=== PATIENT | female | born 1950 | race Caucasian/White ===

== ENCOUNTER 2017-07-29 19:23 | Inpatient (IN) | payer OTHER, MEDICARE ==
[~2017-07-29] VITALS: Ht 165.1 cm; Wt 99.3 kg
[2017-07-29] MEDS ORDERED: SODIUM CHLORIDE 0.9% 1,000 ML IV ONE (20:15)
[2017-07-29] MEDS ORDERED: ACETAMINOPHEN 500 MG TABLET ONE (20:20)
[2017-07-29] MEDS ORDERED: ONDANSETRON 2MG/ML, 2ML ONE (20:20)
[2017-07-29] MEDS ORDERED: SODIUM CHLORIDE FLUSH 10ML SYR IVF ONE (20:30)
[2017-07-29] MEDS ORDERED: SODIUM CHLORIDE 0.9% 1,000ML IVBOLUS ONE (20:30)
[2017-07-29] MEDS ORDERED: ONDANSETRON 2MG/ML, 2ML IVPush ONE (20:30)
[2017-07-29] MEDS ORDERED: ACETAMINOPHEN 500 MG TABLET PO ONE (20:30)
[2017-07-29 20:50] LABS: HEMATOCRIT 29.2 % (34.6-47.8); HEMOGLOBIN 9.6 g/dL (11.7-16.4); WHITE BLOOD COUNT 10.3 x10^3/uL (3.4-10)
[2017-07-29 20:52] LABS: PATH.CAST-FLAG NOT PRESENT; SPERM-FLAG NOT PRESENT; SRC-FLAG NOT PRESENT; XTAL-FLAG NOT PRESENT; YLC-FLAG NOT PRESENT
[2017-07-29] MEDS ORDERED: CEFTRIAXONE PMX 1GM/50ML 50 ML ONE (20:59)
[2017-07-29 21:00] LABS: ASPARTATE AMINO TRANSFERASE 15 U/L (15-37); BLOOD UREA NITROGEN 21 mg/dL (7-18)
[2017-07-29] MEDS ORDERED: CEFTRIAXONE PMX 1GM/50ML 50 ML IV ONE (21:00)
[2017-07-29] MEDS ORDERED: GLIP10TA13 PO (21:24)
[2017-07-29] MEDS ORDERED: MULT-658 PO (21:24)
[2017-07-29] MEDS ORDERED: LISI5TAB7 PO (21:24)
[2017-07-29] MEDS ORDERED: METF850T2 PO (21:24)
[2017-07-29] MEDS ORDERED: SIMV20TA3 PO (21:24)
[2017-07-29] MEDS ORDERED: ASPI-496 PO (21:24)
[2017-07-29] MEDS ORDERED: metFORMIN 850 MG TABLET PO SCH (22:00)
[2017-07-29] MEDS ORDERED: ACETAMINOPHEN 325 MG TABLET PO PRN (22:00)
[2017-07-29] MEDS ORDERED: POLYETHYLENE GLYCOL 17 GM PACKET PO PRN (22:00)
[2017-07-29] MEDS ORDERED: VANCOMYCIN PER PHARMACY MC PRN (22:00)
[2017-07-29] MEDS ORDERED: BISACODYL 10 MG SUPP PR PRN (22:00)
[2017-07-29] MEDS ORDERED: ONDANSETRON 2MG/ML, 2ML IVPush PRN (22:00)
[2017-07-29] MEDS: SODIUM CHLORIDE 0.9% 1,000 ML IV SCH (22:31)
[2017-07-29] MEDS ORDERED: PIPERACILLIN/TAZO/PMX 3.375GM 50 ML ONE (22:51)
[2017-07-29] MEDS: PIPERACILLIN/TAZO/PMX 3.375GM 50 ML IV SCH (22:58)
[2017-07-29] MEDS ORDERED: PHARMACOKINETIC MONITORING MC PRN (23:30)
[2017-07-30] MEDS ORDERED: VANCOMYCIN 1,800 MG in SODIUM CHLORIDE 0.9% 250 ML IV ONE
[2017-07-30] MEDS: SIMVASTATIN 20 MG TABLET PO SCH ×2 (00:12→21:29)
[2017-07-30] MEDS: HEPARIN 5,000 UNITS/ML, 1ML SQ SCH ×4 (00:12→21:30)
[2017-07-30] MEDS: INSULIN ASPART 100 UNITS/ML, PEN SQ-INSULIN SCH ×5 (00:27→21:30)
[2017-07-30 00:32] VITALS: BP 103/64
[2017-07-30] MEDS: PIPERACILLIN/TAZO/PMX 3.375GM 50 ML IV SCH ×3 (04:03→17:55)
[2017-07-30 05:31] LABS: HEMATOCRIT 26.8 % (34.6-47.8); HEMOGLOBIN 8.9 g/dL (11.7-16.4); WHITE BLOOD COUNT 9.8 x10^3/uL (3.4-10)
[2017-07-30 05:50] LABS: ASPARTATE AMINO TRANSFERASE 10 U/L (15-37); BLOOD UREA NITROGEN 19 mg/dL (7-18)
[2017-07-30 07:58] VITALS: BP 100/61
[2017-07-30] MEDS: LISINOPRIL 5 MG TABLET PO SCH (08:22)
[2017-07-30] MEDS: ASPIRIN 81 MG TABLET EC PO SCH (08:22)
[2017-07-30] MEDS: SODIUM CHLORIDE 0.9% 1,000 ML IV SCH ×2 (08:23→17:55)
[2017-07-30] MEDS: MULTIVITAMIN 1 TABLET PO SCH (08:23)
[2017-07-30] MEDS: SENNA/DOCUSATE TABLET PO SCH (08:23)
[2017-07-30 12:39] VITALS: BP 97/58
[2017-07-30 19:57] VITALS: BP 110/68
[2017-07-31] MEDS: PIPERACILLIN/TAZO/PMX 3.375GM 50 ML IV SCH ×4 (00:10→18:13)
[2017-07-31] MEDS: VANCOMYCIN 1,800 MG in SODIUM CHLORIDE 0.9% 250 ML IV SCH (00:52)
[2017-07-31 01:56] VITALS: BP 107/69
[2017-07-31] MEDS: SODIUM CHLORIDE 0.9% 1,000 ML IV SCH (05:52)
[2017-07-31] MEDS: HEPARIN 5,000 UNITS/ML, 1ML SQ SCH ×3 (05:53→21:29)
[2017-07-31] MEDS: INSULIN ASPART 100 UNITS/ML, PEN SQ-INSULIN SCH ×4 (07:00→21:38)
[2017-07-31 07:36] VITALS: BP 112/72
[2017-07-31] MEDS: MULTIVITAMIN 1 TABLET PO SCH (08:00)
[2017-07-31] MEDS: ASPIRIN 81 MG TABLET EC PO SCH (08:00)
[2017-07-31] MEDS: LISINOPRIL 5 MG TABLET PO SCH (08:00)
[2017-07-31] MEDS: SENNA/DOCUSATE TABLET PO SCH (08:01)
[2017-07-31 10:03] LABS: BLOOD UREA NITROGEN 15 mg/dL (7-18); HEMOGLOBIN 7.6 g/dL (11.7-16.4); WHITE BLOOD COUNT 6.6 x10^3/uL (3.4-10)
[2017-07-31 10:14] LABS: DIFF TOTAL CELLS COUNTED 100 CELL DIFF
[2017-07-31 10:17] LABS: ANISOCYTOSIS 1+; OVALOCYTES 1+; POIKILOCYTOSIS 1+; VERIFY COUNTS? YES
[2017-07-31 12:20] LABS: FERRITIN 482.1 ng/mL (8-252)
[2017-07-31 13:16] LABS: OCCBLD OBC PASS
[2017-07-31 13:57] VITALS: BP 151/74
[2017-07-31 21:22] VITALS: BP 111/72
[2017-07-31] MEDS: SIMVASTATIN 20 MG TABLET PO SCH (21:29)
[2017-08-01] MEDS: PIPERACILLIN/TAZO/PMX 3.375GM 50 ML IV SCH ×3 (00:18→11:42)
[2017-08-01] MEDS: VANCOMYCIN 1,800 MG in SODIUM CHLORIDE 0.9% 250 ML IV SCH (01:00)
[2017-08-01 02:15] VITALS: BP 124/84
[2017-08-01 05:00] LABS: HEMOGLOBIN 7.3 g/dL (11.7-16.4); WHITE BLOOD COUNT 4.9 x10^3/uL (3.4-10)
[2017-08-01 05:21] LABS: BLOOD UREA NITROGEN 12 mg/dL (7-18)
[2017-08-01 05:26] LABS: HEMATOCRIT 22.1 % (34.6-47.8)
[2017-08-01] MEDS: HEPARIN 5,000 UNITS/ML, 1ML SQ SCH ×2 (05:36→14:00)
[2017-08-01 07:22] VITALS: BP 128/80
[2017-08-01] MEDS: ASPIRIN 81 MG TABLET EC PO SCH (07:47)
[2017-08-01] MEDS: LISINOPRIL 5 MG TABLET PO SCH (07:47)
[2017-08-01] MEDS: MULTIVITAMIN 1 TABLET PO SCH (07:47)
[2017-08-01] MEDS: INSULIN ASPART 100 UNITS/ML, PEN SQ-INSULIN SCH ×2 (07:48→11:40)
[2017-08-01] MEDS: SENNA/DOCUSATE TABLET PO SCH (07:48)
[2017-08-01] MEDS ORDERED: AMOX1TAB64 PO (09:32)
[2017-08-01] MEDS ORDERED: LACT1CAP32 PO (09:32)
[2017-08-01] MEDS ORDERED: FERR325T18 PO (09:33)
[2017-08-02] MEDS ORDERED: VANCOMYCIN 1,800 MG in SODIUM CHLORIDE 0.9% 250 ML IV SCH (01:00)
== END 2017-08-01 14:50 | disposition home or self-care (01) | DRG 871 ==
LOC: ED 21:50 → EDIP 22:00 → 4WST 23:18 → DCLOUNGE 08-01 14:37
PROVIDERS: ADMIT Internal Medicine; ATTEND Internal Medicine
DX: A41.9 Sepsis, unspecified organism (principal); J18.9 Pneumonia, unspecified organism; N17.9 Acute kidney failure, unspecified; E44.0 Moderate protein-calorie malnutrition; E86.0 Dehydration; E87.1 Hypo-osmolality and hyponatremia; E11.65 Type 2 diabetes mellitus with hyperglycemia; D64.9 Anemia, unspecified; E66.9 Obesity, unspecified; Z68.36 Body mass index [BMI] 36.0-36.9, adult; E78.5 Hyperlipidemia, unspecified; I10 Essential (primary) hypertension; J20.9 Acute bronchitis, unspecified; Z66 Do not resuscitate; Z79.82 Long term (current) use of aspirin; Z79.84 Long term (current) use of oral hypoglycemic drugs; Z79.899 Other long term (current) drug therapy; Z85.72 Personal history of non-Hodgkin lymphomas; Z92.21 Personal history of antineoplastic chemotherapy; Z92.3 Personal history of irradiation
CPT/HCPCS: 36415; 71010; 71250; 80048; 80053; 81001; 82272; 82607; 82728; 82962; 83036; 83540; 83550; 83605; 85025; 85045; 87040; 87070; 87147; 87205; 93005; 96361; 96365; 96375; J0696; J1644; J1815; J2405; J2543; J3370; J7030; J7050

== ENCOUNTER → 2017-08-04 | Outpatient (CLI) | payer OTHER, MEDICARE ==
[~2017-08-04] MED LIST: AMOX1TAB64 PO; ASPI-496 PO; FERR325T18 PO; GLIP10TA13 PO; LACT1CAP32 PO; LISI5TAB7 PO; METF850T2 PO; MULT-658 PO; SIMV20TA3 PO
== END | disposition home or self-care (01) ==
LOC: WOUND 09:22
PROVIDERS: ATTEND Internal Medicine
DX: E11.622 Type 2 diabetes mellitus with other skin ulcer (principal); L97.821 Non-pressure chronic ulcer of other part of left lower leg limited to breakdown of skin; I10 Essential (primary) hypertension; E78.5 Hyperlipidemia, unspecified; E66.9 Obesity, unspecified; Z87.01 Personal history of pneumonia (recurrent); Z68.36 Body mass index [BMI] 36.0-36.9, adult
CPT/HCPCS: 97597; G0463; WOU0463

== ENCOUNTER → 2017-08-04 | Outpatient (CLI) | payer MEDICARE, OTHER | END | disposition home or self-care (01) | LOC: CFH 07:39 | PROVIDERS: ATTEND Internal Medicine | DX: L03.116 Cellulitis of left lower limb (principal) ==

== ENCOUNTER → 2017-08-18 | Outpatient (CLI) | payer MEDICARE, OTHER | END | disposition home or self-care (01) | LOC: WOUND 09:05 | PROVIDERS: ATTEND Physician Assistant | DX: E11.622 Type 2 diabetes mellitus with other skin ulcer (principal); L97.222 Non-pressure chronic ulcer of left calf with fat layer exposed; I87.332 Chronic venous hypertension (idiopathic) with ulcer and inflammation of left lower extremity; Z68.36 Body mass index [BMI] 36.0-36.9, adult; I10 Essential (primary) hypertension; E78.5 Hyperlipidemia, unspecified; E66.9 Obesity, unspecified; Z87.01 Personal history of pneumonia (recurrent) | CPT/HCPCS: 97597; 97598 ==

== ENCOUNTER → 2017-08-22 | Outpatient (CLI) | payer OTHER | END | disposition home or self-care (01) | LOC: WOUND 10:22 | PROVIDERS: ATTEND Specialist | DX: E11.622 Type 2 diabetes mellitus with other skin ulcer (principal); L97.222 Non-pressure chronic ulcer of left calf with fat layer exposed; I87.332 Chronic venous hypertension (idiopathic) with ulcer and inflammation of left lower extremity; E78.5 Hyperlipidemia, unspecified; E66.9 Obesity, unspecified; Z87.01 Personal history of pneumonia (recurrent); Z68.36 Body mass index [BMI] 36.0-36.9, adult | CPT/HCPCS: G0463; WOU0463 ==

== ENCOUNTER → 2017-09-01 | Outpatient (CLI) | payer OTHER | END | disposition home or self-care (01) | LOC: WOUND 10:16 | PROVIDERS: ATTEND Physician Assistant | DX: E11.622 Type 2 diabetes mellitus with other skin ulcer (principal); L97.222 Non-pressure chronic ulcer of left calf with fat layer exposed; I87.332 Chronic venous hypertension (idiopathic) with ulcer and inflammation of left lower extremity; Z68.36 Body mass index [BMI] 36.0-36.9, adult; E78.5 Hyperlipidemia, unspecified; E66.9 Obesity, unspecified; Z87.01 Personal history of pneumonia (recurrent) | CPT/HCPCS: 97597 ==

== ENCOUNTER → 2017-09-05 | Outpatient (CLI) | payer OTHER, MEDICARE | END | disposition home or self-care (01) | LOC: CFH 11:01 | PROVIDERS: ATTEND Nurse Practitioner | DX: Z12.31 Encounter for screening mammogram for malignant neoplasm of breast (principal) | CPT/HCPCS: 77063; G0202 ==

== ENCOUNTER → 2017-09-08 | Outpatient (CLI) | payer OTHER | END | disposition home or self-care (01) | LOC: WOUND 09:56 | PROVIDERS: ATTEND Physician Assistant | DX: E11.622 Type 2 diabetes mellitus with other skin ulcer (principal); L97.222 Non-pressure chronic ulcer of left calf with fat layer exposed; I87.332 Chronic venous hypertension (idiopathic) with ulcer and inflammation of left lower extremity; E78.5 Hyperlipidemia, unspecified; E66.9 Obesity, unspecified; Z87.01 Personal history of pneumonia (recurrent) | CPT/HCPCS: G0463; WOU0463 ==

== ENCOUNTER → 2020-06-12 | Outpatient (CLI) | payer MEDICARE ==
[~2020-06-12] MED LIST changes: +METF850T10 PO; -METF850T2 PO; +SIMV20TA19 PO; -SIMV20TA3 PO
== END | disposition home or self-care (01) ==
LOC: CFH 08:13
PROVIDERS: ATTEND Nurse Practitioner
DX: M62.89 Other specified disorders of muscle (principal)

== ENCOUNTER → 2020-07-29 | Outpatient (CLI) | payer MEDICARE | END | disposition home or self-care (01) | LOC: PETCFH 09:52 | PROVIDERS: ATTEND Internal Medicine | DX: C83.39 Diffuse large B-cell lymphoma, extranodal and solid organ sites (principal); R91.8 Other nonspecific abnormal finding of lung field | CPT/HCPCS: 78815; A9552 ==

== ENCOUNTER → 2020-10-01 | Outpatient (CLI) | payer MEDICARE ==
[~2020-10-01] MED LIST changes: +ACID1TAB7 PO; +ALLO100T30 PO; +HYDR-3341 PO; +INSU100I11 SQ-INSULIN; +INSU100I13 SQ-INSULIN; +LEVO750T6 PO; +PRED10TA PO; +PRED20TA PO; +SODI650T PO
== END | disposition home or self-care (01) ==
LOC: PETCFH 07:24
PROVIDERS: ATTEND Internal Medicine
DX: C83.39 Diffuse large B-cell lymphoma, extranodal and solid organ sites (principal); C85.18 Unspecified B-cell lymphoma, lymph nodes of multiple sites
CPT/HCPCS: 78815; A9552

== ENCOUNTER → 2020-12-07 | Outpatient (CLI) | payer MEDICARE | END | disposition home or self-care (01) | LOC: CARD 10:41 | PROVIDERS: ATTEND Internal Medicine | DX: C83.39 Diffuse large B-cell lymphoma, extranodal and solid organ sites (principal); C85.18 Unspecified B-cell lymphoma, lymph nodes of multiple sites; I49.3 Ventricular premature depolarization; E78.5 Hyperlipidemia, unspecified; E11.9 Type 2 diabetes mellitus without complications | CPT/HCPCS: 71046; 93017; 93350 ==